=== PATIENT | female | born 1970 | race Caucasian/White ===

== ENCOUNTER 2017-07-11 08:46 | Emergency (ER) | payer OTHER ==
[2017-07-11 08:50] VITALS: BP 133/76; PULSE 63; TEMP 98.5; BMI 29.0
--- NOTE | 2017-07-11 09:29 | PDOC ---
History of Present Illness - General Chief Complaint: Urinary Problem Stated Complaint: POSSIBLE UTI Time Seen by Provider: 07/11/17 08:56 History Source: Patient Exam Limitations: No Limitations - History of Present Illness Initial Comments: 07/11/17 09:29 My Chief Complaint: pain with urination, hematuria, urgency, lower back pain History Of Present Illness: Pt. is a 47 y/o female with h/o HTN here today with c/o dysuria, hematuria, urgency, frequency si9nce 5 days. Pt. went to [facility] on [facility] days ago and started on bactrim DS 1 tab bid X3 days pt. started to feel slightly improved decreased frequency, lower back pain, urgency, dysuria however less night symptoms increased again. Pt. denies any fever, nausea or vomiting. Pt. denies any vaginal discharge. Timing/Duration: getting worse Severity: moderate Past History - Past Medical History Allergies/Adverse Reactions: Allergies Allergy/AdvReac Type Severity Reaction Status Date / Time No Known Allergies Allergy Verified 07/11/17 08:50 Home Medications: Ambulatory Orders Cephalexin [Keflex] 500 mg PO BID #20 capsule 07/11/17 Phenazopyridine HCl [Pyridium] 200 mg PO TID #6 tablet 07/11/17 COPD: No HTN: Yes - Suicide/Smoking/Psychosocial Hx Smoking Status: No Smoking History: Never smoked Number of Cigarettes Smoked Daily: 0 Hx Alcohol Use: No Drug/Substance Use Hx: No Substance Use Type: None Review of Systems - Review of Systems Able to Perform ROS?: Yes Constitutional: No: Symptoms Reported HEENTM: No: Symptoms Reported Respiratory: No: Symptoms reported Cardiac (ROS): No: Symptoms Reported ABD/GI: No: Symptoms Reported : Yes: Dysuria, Frequency, Hematuria, Urgency Integumentary: No: Symptoms Reported Neurological: No: Symptoms reported *Physical Exam - Vital Signs Last Vital Signs Temp Pulse Resp BP Pulse Ox 98.5 F 63 20 133/76 100 07/11/17 08:47 07/11/17 08:47 07/11/17 08:47 07/11/17 08:47 07/11/17 08:47 - Physical Exam General Appearance: Yes: Appropriately Dressed Respiratory/Chest: positive: Lungs Clear, Normal Breath Sounds. negative: Chest Tender Cardiovascular: positive: Regular Rhythm, Regular Rate, S1, S2 Gastrointestinal/Abdominal: positive: Normal Bowel Sounds, Tender, Soft, Tenderness (suprapubic tenderness). negative: Organomegaly, Distended, Guarding , Rebound, Hepatomegaly, Spleenomegaly Musculoskeletal: positive: Normal Inspection, Other (B/L PARASPINAL LUMBAR/ SACRAL TENDERNESS). negative: CVA Tenderness, CVA Tenderness (R), CVA Tenderness (L) Integumentary: positive: Normal Color Neurologic: positive: Alert, Normal Response, Responsive Medical Decision Making - Medical Decision Making 07/11/17 09:36 Pt. is a 47 y/o female with h/o HTN here today with c/o dysuria, hematuria, urgency, frequency si9nce 5 days. Pt. went to urgent [facility] are on 4 days ago and started on bactrim DS 1 tab bid X3 days pt. started to feel slightly improved decreased frequency, lower back pain, urgency, dysuria however less night symptoms increased again. Pt. denies any fever, nausea or vomiting. Pt. denies any vaginal discharge. r/o unresolved UTI PLan: U/A URINE C & S URINE HCG 07/11/17 10:15 Laboratory Tests 07/11/17 09:20 Urine Color Ltyellow Urine Appearance Slcloudy Urine pH 6.0 Ur Specific [place] 1.012 Urine Protein Negative Urine Glucose (UA) Negative Urine Ketones Negative Urine Blood 2+ H Urine Nitrite Negative Urine Bilirubin Negative Urine Urobilinogen Negative Urine WBC (Auto) 49 Urine RBC (Auto) 11 Ur Epithelial Cells Rare Urine Mucus Rare Urine HCG, Qual Negative WILL TREAT WITH KEFLEX 500 MG BID FOR 10 DAYS PYRIDIUM 200 MG TID FOR 2 DayS *DC/Admit/Observation/Transfer Diagnosis at time of Disposition: Urinary tract infection Qualifiers: Urinary tract infection type: acute cystitis Hematuria presence: with hematuria Qualified Code(s): N30.01 - Acute cystitis with hematuria - Discharge Dispostion Disposition: HOME Condition at time of disposition: Stable - Referrals Referrals: STAFF,NOT ON [Primary Care Provider] - - Patient Instructions Additional Instructions: DRINK A LOT OF FLUIDS FOLLOW UP WITH PRIVE CARE PROVIDER FOR REPEAT URINE TESTING AFTER TREATMENT RETURN TO EMERGENCY ROOM IF SYMPTOMS WORSEN FEVER, NAUSEA, VOMITING PATIENT VOICED UNDERSTANDING OF DISCHARGE INSTRUCTIONS AND ALL QUESTIONS WERE ANSWERED - Post Discharge Activity
[2017-07-11 09:52] LABS: URINE APPEARANCE SLCLOUDY; URINE BILIRUBIN NEGATIVE (NEGATIVE); URINE BLOOD 2+ (NEGATIVE); URINE COLOR LTYELLOW; URINE GLUCOSE (UA) NEGATIVE (NEGATIVE); URINE KETONE NEGATIVE (NEGATIVE); URINE NITRITE NEGATIVE (NEGATIVE); URINE PROTEIN NEGATIVE (NEGATIVE); URINE UROBILINOGEN NEGATIVE mg/dL (0.2-1.0)
[2017-07-11 09:55] LABS: URINE MUCUS RARE; URINE RBC 11 /hpf (0-3); URINE WBC 49 /hpf (3-5)
[2017-07-11 21:11] LABS: URINE LEUK ESTERASE 3+ (NEGATIVE)
== END 2017-07-11 10:28 | disposition home or self-care (01) ==
LOC: JERFT 08:46
DX: N30.01 Acute cystitis with hematuria (principal); I10 Essential (primary) hypertension
CPT/HCPCS: 81003; 81015; 84703; 87086; 87186; 99281-25

== ENCOUNTER 2017-11-13 22:18 | Emergency (ER) | payer OTHER ==
[2017-11-13 22:39] VITALS: TEMP 98.4; BMI 27.1
[2017-11-14 02:05] VITALS: BP 117/64; PULSE 71
--- NOTE | 2017-11-16 10:38 | EKG ---
Test Reason : Blood Pressure : / mmHG Vent. Rate : 076 BPM Atrial Rate : 076 BPM P-R Int : 142 ms QRS Dur : 084 ms QT Int : 404 ms P-R-T Axes : 048 060 060 degrees QTc Int : 454 ms NORMAL SINUS RHYTHM NORMAL ECG NO PREVIOUS ECGS AVAILABLE Confirmed by MD Brennen, Lazaro ([id number]) on 11/16/2017 10:38:13 AM Referred By: Confirmed By:Lazaro Hutton MD
== END 2017-11-14 02:05 | disposition left against medical advice (07) ==
LOC: JER 22:18
DX: Z53.21 Procedure and treatment not carried out due to patient leaving prior to being seen by health care provider (principal)
CPT/HCPCS: 93005; 93010; 99281-25

== ENCOUNTER 2021-01-06 14:08 | Emergency (ER) | payer OTHER ==
[2021-01-06] MEDS ORDERED: ONDANSETRON 4 MG/2 ML VIAL IVPUSH ONE (14:53)
[2021-01-06] MEDS ORDERED: FAMOTIDINE 20 MG/50 ML IVPB 20 MG/50 ML MG IVPB ONE ×2 (14:53→16:38)
[2021-01-06 14:55] VITALS: TEMP 98; BMI 27.3
[2021-01-06] MEDS ORDERED: ONDANSETRON 4 MG/2 ML VIAL ONE (15:00)
[2021-01-06 15:05] LABS: VENOUS O2 SATURATION 45.6 % (70-80); VENOUS PCO2 40.6 mmHg (38-52); VENOUS PH 7.446 (7.310-7.410)
[2021-01-06 15:25] LABS: CHLORIDE 103 mmol/L (98-107); SODIUM 139 mmol/L (136-145)
[2021-01-06 15:26] LABS: BASO % 0.1 % (0-2.0); EOS % 0.2 % (0-4.5); HEMATOCRIT 26.7 % (32.4-45.2); HEMOGLOBIN 9.2 GM/dL (10.7-15.3); LYMPH % 3.9 % (8-40); MCHC 34.3 g/dl (32.0-36.0); MEAN CELL VOLUME 93.3 fl (80-96); MEAN PLT VOLUME 9.3 fl (7.5-11.1); MONO % 0.5 % (3.8-10.2); NEUT % 95.3 % (42.8-82.8); PLATELET COUNT 97 K/MM3 (134-434); RBC 2.86 M/mm3 (3.60-5.2); RDW 14.7 % (11.6-15.6); WHITE BLOOD COUNT 6.1 K/mm3 (4.0-10.0)
[2021-01-06 15:27] LABS: CALCIUM 8.2 mg/dL (8.5-10.1)
[2021-01-06 15:28] LABS: ALBUMIN 3.6 g/dl (3.4-5.0); ANION GAP 9 MMOL/L (8-16); BLOOD UREA NITROGEN 22.3 mg/dL (7-18); CO2 27 mmol/L (21-32); GLUCOSE,RANDOM 180 mg/dL (74-106); LIPASE 72 U/L (73-393); MAGNESIUM 2.2 mg/dL (1.8-2.4)
[2021-01-06 15:31] LABS: CREATININE 0.8 mg/dL (0.55-1.3); SGOT/AST 16 U/L (15-37); SGPT/ALT 22 U/L (13-61)
[2021-01-06 15:32] LABS: BILIRUBIN,TOTAL 0.4 mg/dL (0.2-1); INR 0.99 (0.83-1.09); TOT PROT 6.2 g/dl (6.4-8.2)
[2021-01-06 15:34] LABS: ALK PHOS 116 U/L (45-117)
[2021-01-06 15:35] LABS: ACTIVATED PTT 22.4 SECONDS (25.2-36.5); LACTIC ACID 3.3 mmol/L (0.4-2.0)
[2021-01-06] MEDS ORDERED: SODIUM CHLORIDE 0.9% 500 ML INFUS.BAG IV ONE (16:08)
[2021-01-06 16:33] LABS: ANISOCYTOSIS 2+; MACROCYTOSIS 0; PLATELET ESTIMATE DECREASED
[2021-01-06 19:03] VITALS: PULSE 54
[2021-01-06 19:04] VITALS: BP 89/59
== END 2021-01-06 19:20 | disposition home or self-care (01) ==
LOC: JER 14:08
PROC: 3E033GC Introduction of Other Therapeutic Substance into Peripheral Vein, Percutaneous Approach (ICD-10-PCS; principal; 2021-01-06)
DX: R11.2 Nausea with vomiting, unspecified (principal)
CPT/HCPCS: 36415; 70450-TC; 71045-TC-FY; 80053; 82550; 82803; 82962; 83605; 83690; 83735; 84443; 84484; 84703; 85025; 85610; 85730; 86850; 86900; 86901; 87040; 93005; 93010; 99285-25